=== PATIENT | female | born 1990 | race Caucasian/White ===

== ENCOUNTER 2023-10-07 00:13 | Emergency (ER) | payer MEDICAID ==
[~2023-10-07] VITALS: Ht 154.9 cm; Wt 88.0 kg
[2023-10-07 00:23] VITALS: BP 136/86; PULSE 59; RESP 17; TEMP 97.7; O2SAT 99
[2023-10-07 00:54] LABS: BASOPHILS % 0.8 % (0.0-2.0); EOSINOPHILS % 4.1 % (0.0-5.0); HEMATOCRIT. 40.5 % (36.0-48.0); HEMOGLOBIN. 14.3 g/dL (12.0-16.0); LYMPHOCYTES % 34.7 % (20.0-50.0); MEAN CORPUSCULAR HEMOGLOBIN 33.6 pg (28.0-32.0); MEAN CORPUSCULAR HGB CONC 35.5 g/dL (31.0-37.0); MEAN CORPUSCULAR VOLUME 94.8 fL (81.0-99.0); MEAN PLATELET VOLUME 7.1 fl (7.4-10.4); MONOCYTES % 5.3 % (2.0-8.0); NEUTROPHILS % 55.1 % (40.0-76.0); PLATELET 278 x1000/uL (130-400); RED BLOOD CELL COUNT 4.27 mill/uL (4.2-5.4); RED CELL DISTRIBUTION WIDTH 12.6 % (11.6-14.6); WHITE BLOOD COUNT 8.4 x1000/uL (4.5-11.0)
[2023-10-07 00:58] LABS: CHLORIDE 107 mEq/L (98-107); POTASSIUM 3.5 mEq/L (3.5-5.1); SODIUM 140 mEq/L (136-145)
[2023-10-07 00:59] LABS: CARBON DIOXIDE 25 mEq/L (21-32)
[2023-10-07 01:04] LABS: CREATININE 0.7 mg/dL (0.6-1.0); GLUCOSE 102 mg/dL (70-105); UREA NITROGEN BLOOD 12 mg/dL (9-23)
[2023-10-07 01:06] LABS: ALANINE AMINOTRANSFERASE 13 IU/L (10-49); ALBUMIN 4.3 g/dL (3.2-4.8); ASPARTATE AMINOTRANSFERASE 20 IU/L (<34); BILIRUBIN TOTAL 0.5 mg/dL (0.1-1.0); PROTEIN TOTAL 7.4 g/dL (6.0-8.3)
[2023-10-07] MEDS ORDERED: ACETAMINOPHEN 325MG TABLET PO NR (03:15)
[2023-10-07] MEDS: METOCLOPRAMIDE HCL 10MG TABLET PO ONE (04:00)
[2023-10-07] MEDS ORDERED: ACET-2708 MT (05:17)
[2023-10-07] MEDS ORDERED: METO-293 MT (05:17)
== END 2023-10-07 06:10 | disposition home or self-care (01) ==
LOC: ER 00:13
DX: G44.209 Tension-type headache, unspecified, not intractable (principal); Z98.890 Other specified postprocedural states
CPT/HCPCS: 99284; 80053; 83690; 85025; 36415; 93005; J8597